=== PATIENT | female | born 1975 | race Caucasian/White ===

== ENCOUNTER 2016-11-02 11:05 | Emergency (ER) | payer MEDICAID ==
[~2016-11-02] VITALS: Ht 170.2 cm; Wt 90.0 kg
[2016-11-02 11:19] VITALS: BP 97/63
== END 2016-11-02 15:30 | disposition left against medical advice (07) ==
LOC: ER 13:41
DX: R10.9 Unspecified abdominal pain (principal); M54.5 Low back pain; R42 Dizziness and giddiness; R30.0 Dysuria; Z53.21 Procedure and treatment not carried out due to patient leaving prior to being seen by health care provider